=== PATIENT | female | born 1955 | race Caucasian/White ===

== ENCOUNTER → 2017-07-08 | Outpatient (CLI) | payer OTHER ==
[~2017-07-08] MED LIST: AMLO-96 PO; ASCO-182 PO; ASPI-1471 PO; ATOR40TA69 PO; ATR80PT PO; CHOL200059 PO; FUR20 PO; GLY5 PO; LIS10 PO; LISI-347 PO; LISI-355 PO; LISI-368 PO; LISI20TA29 PO; LORA-802 PO; PER PO; TRIA10.8 NS; VARE1TAB4 PO; [UNRECOGNIZED DRUG - CODE] TP
--- NOTE | 2017-07-08 16:15 | RADIOLOGY IMAGING REPORT ---
FACILITY: [facility] - [place] PATIENT NAME: AXEL LOTT : [id number] MR: [id number] V: [id number] EXAM DATE: [id number] ORDERING PHYSICIAN: OLIVE LUNSFORD TECHNOLOGIST: Lynne Marquez PROCEDURE:BILATERAL DIGITAL SCREENING MAMMOGRAM WITH CAD ASSISTED INTERPRETATION & 3D TOMOSYNTHESIS COMPARISON:Mammogram 04/26/2015. INDICATIONS:screening FINDINGS: Breast tissue is predominantly fatty. There is no suspicious mass, calcification, or architectural distortion. There is a benign intramammary lymph node in the upper outer quadrant of the Right breast, unchanged. DIAGNOSTIC CATEGORY 2--BENIGN FINDING. RECOMMENDATIONS: ROUTINE MAMMOGRAM AND CLINICAL EVALUATION. IMPRESSION: BIRADS 2: Benign finding. No mammographic evidence for malignancy. Dictated by: Hussain Nicholas M.D. on 07/08/2017 at 15:02 Transcribed by: STERLING on 07/08/2017 at 15:29 Approved by: Hussain Nicholas M.D. on 07/08/2017 at 16:13 [facility]
== END ==
LOC: MAMO 01:08
PROVIDERS: ATTEND Emergency Medicine
DX: Z12.31 Encounter for screening mammogram for malignant neoplasm of breast (principal); I10 Essential (primary) hypertension
CPT/HCPCS: 36415; 77063; 77067; 82310; 82374; 82435; 82565; 82947; 83880; 84132; 84295; 84520

== ENCOUNTER → 2017-07-08 | Outpatient (CLI) | payer OTHER ==
--- NOTE | 2017-07-08 15:57 | RADIOLOGY IMAGING REPORT ---
FACILITY: [facility] PATIENT NAME: Zarina Graf : 1955 MR: [id number] V: [id number] EXAM DATE: ORDERING PHYSICIAN: KOURTNEY MACK TECHNOLOGIST: Location: [facility] [place] Patient: Zarina Graf : 1955 Visit/Account:[id number] Date of Sevice: 07/08/2017 THYROID HISTORY: Follow-up thyroid nodules. Prior FNA of hypoechoic nodule in April 2015 COMPARISON: 04/26/2015 FINDINGS: SIZE: Mildly enlarged Right lobe: 6.0 x 2.1 x 2.1 cm Left lobe: 5.7 x 2.5 x 2.7 cm Isthmus: 5 mm PARENCHYMA: Diffusely heterogeneous NODULES: Right lobe: * There is a stable spongiform nodule within the mid thyroid lobe that measures 1.2 x 1.2 x 0.9 cm * There is a poorly defined isoechoic nodule versus heterogeneous thyroid tissue inferiorly that debo sures 1.0 x 1.0 x 0.9 cm. Left lobe: * Reidentified and slightly smaller in size is a solid hypoechoic nodule within the mid thyroid body measuring 2.1 x 2.0 x 1.0 cm Isthmus: * There is a heterogeneously isoechoic solid cystic nodule measuring 5 mm VASCULARITY: Within normal limits. ADDITIONAL FINDINGS: None. IMPRESSION: Stable thyroid ultrasound, in particular, the solid hypoechoic nodule within the left thyroid lobe is slightly smaller REFERENCE: 2015 [place] [employer] Management Guidelines for Adult Patients with Thyroid Nodules and D ifferentiated Thyroid Cancer: The [place] [employer] Guidelines Task Force on Thyroid Nodul es and Differentiated Thyroid Cancer. SONOGRAPHIC PATTERNS: * Benign: Purely cystic nodules (no solid component); estimated risk of malignancy <1 percent; no bi opsy recommended. * Very Low Suspicion: Spongiform or partially cystic nodules without any of the sonographic features described in low, intermediate, or high suspicion patterns; estimated risk of malignancy <3 percent; consider FNA at > 2 cm (Observation without FNA is also a reasonable option). * Low Suspicion: Isoechoic or hyperechoic solid nodule, or partially cystic nodule with eccentric so lid areas, without microcalcification, irregular margin or ETE (extra-thyroidal extension), or taller than wide shape; estimated risk of malignancy 5-10 percent; recommend FNA at >1.5 cm. * Intermediate Suspicion: Hypoechoic solid nodule with smooth margins without microcalcifications, E TE (extra-thyroidal extension), or taller than wide shape; estimated risk of malignancy 10-20 percent ; recommend FNA at > 1 cm. * High Suspicion: Solid hypoechoic nodule or solid hypoechoic component of a partially cystic nodule with one or more of the following features: irregular margins (infiltrative, microlobulated), microc alcifications, taller than wide shape, rim calcifications with small extrusive soft tissue component, evidence of ETE (extra-thyroidal extension); estimated risk of malignancy >70-90 percent; recommend FNA at > 1 cm. NOTES: * Although a sonographically suspicious subcentimeter thyroid nodule without evidence of extrathyroi yin extension or sonographically suspicious lymph nodes may be observed with close sonographic follow -up rather than pursuing immediate FNA, patient age and preference may modify decision-making. * A > 50% interval increase in nodule volume and/or development of new suspicious sonographic featur es are felt to be a valid reasons for potential re-aspiration of a nodule previously shown to have be nign FNA cytology. Report Dictated By: Andrew Manjarrez at 07/08/2017 3:45 PM Report E-Signed By: Andrew Manjarrez at 07/08/2017 3:53 PM WSN:MARY
== END ==
LOC: US 01:08
PROVIDERS: ATTEND Surgery
DX: E04.2 Nontoxic multinodular goiter (principal)
CPT/HCPCS: 76536

== ENCOUNTER 2017-09-01 00:13 | Day surgery (SDC) | payer OTHER ==
[~2017-09-01] VITALS: Ht 157.5 cm; Wt 101.6 kg
[~2017-09-01 00:13] MED LIST changes: +AMOX-559 PO; +CYAN100058; +HYDR-2966 PO; +LISI-374 PO
[2017-09-01] MEDS ORDERED: PROPOFOL EMUL(*) 10MG/ML 20 ML 40 ML ONE (07:08)
[2017-09-01] MEDS ORDERED: GLYCOPYRROLATE 0.2MG/ML 1 ML INJ ONE (08:48)
[2017-09-01 10:14] VITALS: BP 131/77
[2017-09-01] MEDS ORDERED: LIDOCAINE/SOD BICARB 8.4% SYR ID ONE (11:20)
[2017-09-01] MEDS ORDERED: NORMOSOL R SOLN(*) 1000 ML BAG 1,000 ML IV PRN (11:20)
--- NOTE | 2017-09-01 11:45 | Short(Outpt) Discharge Summary ---
Discharge Summary Reason for Hosp/Final Diag: (1) Esophageal stricture Status: Chronic Hospital Course & Plan: EGD with esophageal dilation completed without any problems. Departure Discharge to: Home, Self Care Discharge Instructions Home Meds Active Scripts Hydrochlorothiazide (HYDROCHLOROTHIAZIDE) 25 Mg Tablet, 1 TAB PO QDAY, #90 TAB 3 Refills Prov:OLIVE LUNSFORD MD 07/19/17 Lisinopril (LISINOPRIL) 40 Mg Tablet, 40 MG PO QDAY, #90 TAB 3 Refills Prov:OLIVE LUNSFORD MD 07/19/17 Amlodipine Besylate (AMLODIPINE BESYLATE) 5 Mg Tablet, 1 TAB PO DAILY, #90 TAB 3 Refills Prov:OLIVE LUNSFORD MD 06/24/17 Glyburide (GLYBURIDE) 5 Mg Tab, 1 TAB PO BID, #180 TAB 3 Refills Prov:OLIVE LUNSFORD MD 06/24/17 Atorvastatin Calcium (ATORVASTATIN CALCIUM) 40 Mg Tablet, 1 TAB PO DAILY, #90 TAB 3 Refills Prov:OLIVE LUNSFORD MD 06/24/17 Reported Medications Cyanocobalamin (Vitamin B-12) (Vitamin B-12) 1,000 Mcg Capsule 08/23/17 Aspirin (ASPIR 81) 81 Mg Tablet.dr, 1 TAB PO QDAY, TAB 06/10/17 Arnica (ARNICA) Unknown Strength Tincture, TP 06/10/17 Ascorbic Acid (VITAMIN C) 500 Mg Tablet, 1000 MG PO DAILY, TAB 06/10/17 Triamcinolone Acetonide (Nasacort) 10.8 Ml [place], 1 SPRAY NS PRN 06/10/17 Loratadine (CLARITIN) 10 Mg Tablet, 10 MG PO DAILY 06/10/17 Diet: Regular Activity: As Tolerated Special Instructions: Your upper endoscopy was completed without problems. 2 parts of your esophagus were slightly narrowed and I opened them with the dilator. I recommend that you take omeprazole, 20mg every day, to decrease stomach acid that is refluxed in to your esophagus. This medication is over the counter. I can also prescribe it for you if it would be cheaper for you to do that. You can discuss this with your pharmacy and they can give the the cost for prescription omeprazole per month and you can compare your cost to the over the counter variety. The omeprazole will help prevent the narrowing from returning (in most cases but not all). You should take 1 pill, first thing every morning, before eating and wait 1/2 hour before eating. Your thyroid ultrasound was very reassuring. The nodules are stable and one of them even decreased in size. You don't require any further testing on your thyroid unless you start feeling a nodule in your neck, then we would repeat the ultrasound. Please call my office at [phone] if you have any questions or if you would like a prescription for omeprazole. KOURTNEY MACK MD Sep 01, 2017 11:45
[2017-09-01 11:46] VITALS: BP 132/69
[2017-09-01 12:00] VITALS: BP 140/86
[2017-09-01 12:04] VITALS: BP 140/84
[2017-09-01 12:15] VITALS: BP 129/86
[2017-09-01 12:16] VITALS: BP 138/92
== END 2017-09-01 12:35 | disposition home or self-care (01) ==
LOC: OR 00:13
PROVIDERS: ATTEND Surgery
DX: R13.10 Dysphagia, unspecified (principal); E11.9 Type 2 diabetes mellitus without complications
CPT/HCPCS: 36416; 43248; 82948; J2704; J3490

== ENCOUNTER → 2018-04-26 | Outpatient (CLI) | payer MEDICARE, OTHER ==
[~2018-04-26] MED LIST changes: +AMLO-125 PO; -AMLO-96 PO
[2018-04-26 08:43] VITALS: BP 129/68
[2018-04-26 09:45] VITALS: BP 106/72
== END ==
LOC: SPU 08:13
PROVIDERS: ATTEND Emergency Medicine
DX: D75.1 Secondary polycythemia (principal)
CPT/HCPCS: 85018; 99195

== ENCOUNTER → 2018-05-10 | Outpatient (CLI) | payer MEDICARE, OTHER ==
[~2018-05-10] MED LIST changes: +DAPA5TAB PO; +PNEU0.5D3 IM
== END ==
LOC: LAB 08:07
PROVIDERS: ATTEND Emergency Medicine
DX: R79.89 Other specified abnormal findings of blood chemistry (principal)
CPT/HCPCS: 36415; 84402

== ENCOUNTER → 2018-05-24 | Outpatient (CLI) | payer MEDICARE, OTHER | LOC: LAB 11:15 | PROVIDERS: ATTEND Student in an Organized Health Care Education/Training Program | DX: R79.89 Other specified abnormal findings of blood chemistry (principal) | CPT/HCPCS: 36415; 82627; 84403 ==

== ENCOUNTER → 2018-06-13 | Outpatient (CLI) | payer MEDICARE, OTHER ==
--- NOTE | 2018-06-13 15:44 | RADIOLOGY IMAGING REPORT ---
FACILITY: [facility] [place] PATIENT NAME: Zarina Graf : 1955 MR: [id number] V: [id number] EXAM DATE: [id number] ORDERING PHYSICIAN: ALOK ORELLANA TECHNOLOGIST: Location: [facility] Patient: Zarina Graf : 1955 Visit/Account:[id number] Date of Sevice: 06/13/2018 PELVIC HISTORY: Elevated testosterone in female TECHNIQUE: Transvaginal and transabdominal ultrasound pelvis. To evaluate the pelvic anatomy COMPARISON: None. FINDINGS: Uterus: The patient is status post hysterectomy Ovaries: Right - 3.3 x 2.1 x 1.7 cm Left - 2 x 2.2 x 1.2 cm Blood flow is documented in each ovary by duplex Doppler ultrasound. Adnexa: Grossly unremarkable. Free pelvic fluid: None. IMPRESSION: Postsurgical changes from hysterectomy No gross abnormality of the ovaries identified No demonstration of a pelvic mass Report Dictated By: Janina Winchester MD at 06/13/2018 3:36 PM Report E-Signed By: Janina Winchester MD at 06/13/2018 3:39 PM WSN:[email or web address]
== END ==
LOC: US 01:06
PROVIDERS: ATTEND Student in an Organized Health Care Education/Training Program
DX: R79.89 Other specified abnormal findings of blood chemistry (principal)
CPT/HCPCS: 76856

== ENCOUNTER → 2018-08-23 | Outpatient (CLI) | payer MEDICARE, OTHER ==
--- NOTE | 2018-08-24 09:30 | RADIOLOGY IMAGING REPORT ---
FACILITY: [facility] - [place] PATIENT NAME: AXEL LOTT : [id number] MR: [id number] V: [id number] EXAM DATE: [id number] ORDERING PHYSICIAN: OLIVE LUNSFORD TECHNOLOGIST: Lynne Marquez PROCEDURE: BILATERAL DIGITAL SCREENING MAMMOGRAM WITH CAD ASSISTED INTERPRETATION & 3D TOMOSYNTHESIS. REASON FOR STUDY: Screening. FAMILY HISTORY OF BREAST CANCER: Sister. BREAST PROCEDURES/TREATMENTS: Benign surgical biopsy of the Right breast. COMPARISON: 07/08/17, 04/26/15, 08/30/13, 08/29/12. VIEWS OBTAINED: Bilateral 2D & 3D full field CC & MLO projections. BREAST DENSITY: There are scattered areas of fibroglandular density throughout the breasts. MAMMOGRAM FINDINGS: The parenchymal pattern has remained stable allowing for difference in mammographic technique & patient positioning. IMPRESSION: BIRADS 1: Negative. DIAGNOSTIC CATEGORY 1--NEGATIVE. RECOMMENDATIONS: ROUTINE MAMMOGRAM AND CLINICAL EVALUATION. Dictated by: Janina Winchester M.D. on 08/23/2018 at 16:15 Transcribed by: STERLING on 08/24/2018 at 8:41 Approved by: Janina Winchester M.D. on 08/24/2018 at 9:27 [facility]
== END ==
LOC: MAMO 12:44
PROVIDERS: ATTEND Emergency Medicine
DX: Z12.31 Encounter for screening mammogram for malignant neoplasm of breast (principal); Z80.3 Family history of malignant neoplasm of breast
CPT/HCPCS: 77063; 77067

== ENCOUNTER → 2018-09-26 | Outpatient (CLI) | payer MEDICARE, OTHER ==
[~2018-09-26] MED LIST changes: +GLIM4TAB50 PO; +MELO-207 PO
== END ==
LOC: RESP 10:03
PROVIDERS: ATTEND Emergency Medicine
DX: J98.4 Other disorders of lung (principal)
CPT/HCPCS: 94060; 94726; 94729